=== PATIENT | male | born 1970 | race Caucasian/White ===

== ENCOUNTER 2017-03-22 14:05 | Emergency (ER) | payer BC ==
[~2017-03-22] VITALS: Ht 177.8 cm; Wt 90.0 kg
[~2017-03-22 14:05] MED LIST: KEFLEX500 MG PO; MEDDOSEPAK PO; NO MEDICATIONS; PERCOCET 5/325M1 TAB OR
[2017-03-22] MEDS ORDERED: TOBREX OPTH5 ML/BTL OD (14:29)
[2017-03-22 14:39] VITALS: BP 130/77
== END 2017-03-22 14:45 | disposition home or self-care (01) | DRG 125 ==
LOC: ED 14:05
DX: T15.11XA Foreign body in conjunctival sac, right eye, initial encounter (principal); X58.XXXA Exposure to other specified factors, initial encounter; Y93.89 Activity, other specified; Y92.007 Garden or yard of unspecified non-institutional (private) residence as the place of occurrence of the external cause